=== PATIENT | male | born 1960 | race Caucasian/White ===

== ENCOUNTER 2023-09-10 17:47 | Inpatient (IN) | payer OTHER, SELFPAY ==
[2023-09-10 11:41] VITALS: BP 160/112
[2023-09-10 12:31] LABS: % Basophils 0.6 % (0-2); % Eosinophils 6.1 % (0-6); % Immature Granulocytes 0.5 % (0-0.5); % Lymphocytes 26.6 % (20.5-51.1); % Monocytes 10.1 % (1.7-9.3); % Neutrophils 56.1 % (42.2-75.2); Absolute Eosinophils 0.4 10^3/uL (0-0.7); Absolute Lymphocytes 1.7 10^3/uL (1.2-3.4); Absolute Monocytes 0.7 10^3/uL (0.1-0.6); Absolute Neutrophils 3.6 10^3/uL (1.4-6.5); Hematocrit 48.7 % (39.0-52.0); Hemoglobin 16.7 g/dL (13.0-18.0); Mean Corp Hgb Conc. 34.3 g/dL (33.0-37.0); Mean Corpuscular Hgb 32.6 pg (27.0-31.0); Mean Corpuscular Volume 95.1 fL (80.0-94.0); Nucleated Red Blood Cells % 0 % (-); Platelet Count 219 10^3/uL (130-400); Red Blood Cell Count 5.12 10^6/uL (4.70-6.10); Red Cell Dist. Width 13.3 % (11.5-14.5); White Blood Cell Count 6.4 10^3/uL (4.8-10.8)
[2023-09-10 12:49] LABS: ALT (SGPT) 53 U/L (0-50); AST (SGOT) 53 U/L (17-59); Acetaminophen < 10 ug/ml (10-30); Albumin 4.4 g/dl (3.5-5.0); Alkaline Phosphatase 73 U/L (38-126); Blood Urea Nitrogen 21 mg/dl (9-20); Calcium 9.4 mg/dl (8.4-10.2); Carbon Dioxide 24 mmol/L (22-30); Chloride 105 mmol/L (98-107); Glucose 107 mg/dl (70-99); Potassium 4.7 mmol/L (3.5-5.1); Salicylate < 1.0 mg/dl (2.0-20.0); Sodium 133 mmol/L (135-145); Total Bilirubin 1.2 mg/dl (0.2-1.3); Total Protein 7.4 g/dl (6.3-8.2); eGFR > 60.00
[2023-09-10 12:57] LABS: Alcohol None Detected
[2023-09-10 13:08] LABS: Urine Albumin Negative (Neg - Trace); Urine Bilirubin Negative (Negative); Urine Character Slightly Cloudy (Clear); Urine Color Yellow; Urine Glucose Negative (Negative); Urine Ketone Negative (Negative); Urine Leukocyte 2+ (Negative); Urine Nitrite Positive (Negative); Urine Occult Blood Trace (Negative); Urine Urobilinogen Negative (Neg - 1+)
[2023-09-10 13:17] LABS: TSH Reflex To Free T4 2.22 uIU/ml (0.47-4.68)
[2023-09-10 13:20] LABS: Amphetamines Negative (Negative); Barbiturates Negative (Negative); Benzodiazepines Negative (Negative); Buprenorphine Negative (Negative); Cocaine Negative (Negative); Marijuana Negative (Negative); Methadone Negative (Negative); Methamphetamines Negative (Negative); Opiates Negative (Negative); Phencyclidine Negative (Negative); Tricyclic Antidepressants Negative (Negative)
[2023-09-10 13:24] LABS: Urine White Cell 30-40 /HPF (0-5)
[2023-09-10 13:25] LABS: Urine Bacteria Moderate (Negative)
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
--- NOTE | 2023-09-10 14:20 | PHANOTE ---
med rec note- patient stated he took blood pressure medications about a week, no pharmacy data no ecw
[2023-09-10] MEDS: ROCEPHIN 1000 MG IV (15:14)
[2023-09-10] MEDS: THIAMINE INJECTION 200 MG IV (15:14)
[2023-09-10] MEDS: FOLVITE 50.2000000000000028 MG IV (15:34)
[2023-09-10 15:49] LABS: Folate 7.7 ng/ml (2.76-20); Vitamin B12 344 pg/ml (239-931)
--- NOTE | 2023-09-10 16:25 | CON.MD ---
Consultation - Medical
-
Pt seen & evaluated - psychiatry consulted due to concerns of manic behavior. Pt presents with 2 friends who brought him to the ER. Pt was with one of these friends in [place] for a religion trip which they regularly go on. According to his friend
the patient was behaving bizarrely - was not sleeping for days, going out all hours of the night, bringing home people and having sexual interactions with them. On further exploration, it seems that this kind of behavior first presented about 2
years ago, around the time of his having a stroke. The stroke was found incidentally and he does not recollect any stroke-like symptoms prior to this, believes it was in his frontal lobe. According to his friends, shortly prior to this stroke being
found, he started to behave oddly and behavior became increasingly more bizarre, however eventually it resolved and although he was never back to baseline he was back to '90%'. A few months ago it seems like he started to behave oddly again, with a
significant worsening once he went to [place]. Both he and his friends deny such history prior to 2 yrs ago.
Of note, his friends do say he was always 'odd' but this seems to be a general charecterization of him, and I suspect this may be due to some suppressed feelings on his part as he is part of a very religion group.
Following this stroke, he is reported to have become depressed for some time and prescribed an antidepressant - he eventually stopped taking this as he got better (is not sure of name of medication).
There does not seem to be a history of elaine previously, nor of psychosis or significant depression (prior to 2 years ago). No other significant psychiatric history.
He reports drinking 2 glasses of wine nightly but denies drinking more than this and his friends corroborate this.
On exam, he is quite pleasant and calm - he denies much of his friends reports, however he does have some loose thoughts and is religiously preoccupied and grandiose.
He reports a recent UTI which he does not think was tx adequately and UA corroborates this, however these symptoms have been presenting much longer than the UTI.
Unspecified psychosis, r/o bipolar disorder r/o elaine due to physiologic cause
MSE: male, dressed appropriately, good eye contact, speech nl rate & rhythm, cooperative. Good eye contact. Mood is good , affect constricted but appropriate. Thought process overall linear but with some loose thoughts. No SI/HI/AVH, +grandiosity,
religion preoccupation. Fully oriented. Insight/judgement poor.
Unclear what the cause of his symptoms is - it is unlikely for a bipolar disorder to first present for a male in his late 50s. He describes the stroke as minor & an incidental finding, however it's in the frontal lobe so I cannot say with full
certainty this isn't associated with his presentation though this too is unlikely. He has an MRI scheduled & neuro is following, will review their thoughts and findings.
Zyprexa 2.5mg HS - regardless of cause, would need to treat symptoms acutely so as to hopefully bring him closer to baseline. Will then attempt to get more history and clarify further.
[2023-09-10] MEDS: THIAMINE INJECTION 255 MG IV (16:41)
--- NOTE | 2023-09-10 17:35 | HPS.HSE ---
Family Physician
-
Family Physician: * NONE
Chief Complaint
-
Bizarre, disinhibited behavior as reported by patient's friends
History of Present Illness
63-year-old male with a past medical history of previous ischemic stroke associated with COVID around March 2020 or 2020, history of disinhibited behavior following his COVID infection, depression, UTIs, as well as hypertension presented with
bizarre behavior, which he has been having for some time now. Per reports, he has been having disorganized behavior, insomnia, very yazidism recently and a lot of unusual shopping.
Medical History
Past Medical History
Past Medical History: Reports Other (As per HPI above)
Past Surgical History: Reports Other (Colonoscopy)
Social History
Tobacco: Other (Occasional Cigar Smoking)
Alcohol: Daily
Drug: None
Family History
Family History: Other ([place]. Dementia.)
Allergies / Home Medications
Allergies reflects when Allergies were last updated in [employer].
Home Medications with original date entered in [employer]
Allergy/Medication List:
Allergies
Allergy/AdvReac Type Severity Reaction Status Date / Time
No Known Allergies Allergy Unverified 09/10/23 11:45
Home Medications
aspirin 81 mg tablet,delayed release 81 mg PO DAILY Blood Clot Prevention/Tx 09/10/23
Review of Systems
-
A 12 point ROS was completed and negative except as noted: Yes
Physical Exam
Vital Signs
Vital Signs
Temp Pulse Resp BP Pulse Ox
98.1 F 89 16 160/112 99
09/10/23 11:41 09/10/23 11:41 09/10/23 11:41 09/10/23 11:41 09/10/23 11:41
Physical Exam
General: No Apparent Distress
HEENT: NormoCephalic
Respiratory: Clear
Cardiac: S1/S2 and Regular Rhythm
GI: Soft, Non Tender and Normal Bowel Sounds
Musculoskeletal: No Cyanosis and No Edema
Neuro: Awake, Alert, AO x 3, No Motor Deficits, Nonfocal/grossly intact and Cranial Nerves Intact
Psych: Calm and Intact Judgment/Insight
Laboratory Results
-
09/10/23 12:22
09/10/23 12:22
Laboratory Results
Total Bilirubin 1.2 mg/dl (0.2-1.3) 09/10/23 12:22
AST 53 U/L (17-59) 09/10/23 12:22
ALT 53 U/L (0-50) H 09/10/23 12:22
Alkaline Phosphatase 73 U/L (38-126) 09/10/23 12:22
Impression/Plan
-
Assessment/Plan
Bizarre, Disinhibited Behavior
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
History of disinhibited behavior following his COVID infection,
-Neurology and psychiatry consulted, recommendations appreciated
-Continue aspirin 81 mg daily
-Continue high dose IV Thiamine 500 mg q8hr for 3 doses
-Check labs as per neurology: Vitamin B1, B12, Ammonia, urine drug screen, RPR, heavy metals, copper, HIV
-MRI of the brain with and without contrast
-Lumbar puncture: check CSF-VDRL, cell count, protein, culture and gram stain, PCR meningitis panel
-Psychiatry consultation recommendations appreciated: continue Zyprexa
Concern for UTI
History of UTIs
-Patient asymptomatic and denied dysuria, suprapubic pain or tenderness, and denied any urinary frequency
-Therefore hold off on further antibiotics
-Follow urine culture
History of depression
History of Hypertension -- monitor vital signs
DVT Prophylaxis: Lovenox
[2023-09-10 18:40] LABS: Total Cholesterol 226 mg/dl (50-199); Triglyceride 82 mg/dl (10-149); Very Low Density Lipoprotein 16 mg/dl (0-30)
[2023-09-10 18:53] VITALS: BP 149/102; BMI 23.1
[2023-09-10 19:05] LABS: HDL Cholesterol 111 mg/dl; LDL Cholesterol, Calculated 99 mg/dl
[2023-09-10] MEDS: LOVENOX 40 MG SC (19:31)
[2023-09-10] MEDS: ZYPREXA ZYDIS (ORALLY DISINTEGRATING) 2.5 MG PO (22:35)
[2023-09-10 23:03] VITALS: BP 145/101
[2023-09-11] VITALS (8 sets, daily range): BP systolic 87–149; BP diastolic 65–108
[2023-09-11] MEDS: THIAMINE INJECTION 255 MG IV ×4 (00:09→23:54)
[2023-09-11 07:45] LABS: Hematocrit 48.5 % (39.0-52.0); Hemoglobin 16.6 g/dL (13.0-18.0); Mean Corp Hgb Conc. 34.2 g/dL (33.0-37.0); Mean Corpuscular Hgb 32.2 pg (27.0-31.0); Mean Corpuscular Volume 94.2 fL (80.0-94.0); Mean Platelet Volume 9.1 fL (7.4-10.4); Platelet Count 227 10^3/uL (130-400); Red Blood Cell Count 5.15 10^6/uL (4.70-6.10); Red Cell Dist. Width 13.4 % (11.5-14.5); White Blood Cell Count 5.7 10^3/uL (4.8-10.8)
[2023-09-11 07:46] LABS: Ammonia < 9 umol/L (9-30)
[2023-09-11] MEDS: ASPIR LOW (ENTERIC COATED) 81 MG PO (07:59)
[2023-09-11 08:00] LABS: ALT (SGPT) 44 U/L (0-50); AST (SGOT) 33 U/L (17-59); Albumin 4.2 g/dl (3.5-5.0); Alkaline Phosphatase 70 U/L (38-126); Blood Urea Nitrogen 20 mg/dl (9-20); Calcium 9.4 mg/dl (8.4-10.2); Carbon Dioxide 25 mmol/L (22-30); Chloride 106 mmol/L (98-107); Estimated Creatinine Clearance 89 ml/min; Glucose 107 mg/dl (70-99); Magnesium 2.1 mg/dl (1.6-2.3); Potassium 4.5 mmol/L (3.5-5.1); Sodium 134 mmol/L (135-145); Total Bilirubin 1.5 mg/dl (0.2-1.3); Total Protein 6.9 g/dl (6.3-8.2); eGFR > 60.00
--- NOTE | 2023-09-11 08:17 | W.PN.NEURO.1 ---
Addendum entered and electronically signed by Eldon Monae MD 09/11/23 12:36:
I saw and evaluated patient reviewed below [place] again agree the findings following comments:
63-year-old male with a past ministry of ischemic stroke associated with COVID presented hospital send unusual motor behaviors, some lack of insight and some disinhibition with some evidence by history of some hypomanic type behavior. No acute
events overnight patient feeling fine.
Neurologic examination showing no overt psychosis or hallucinations, poor insight, no pressured speech or flight of ideas. No aphasia, normal cranial nerves motor function reflexes coordination.
Assessment: History of a previous ischemic stroke in the context of COVID, I am somewhat doubtful that a small frontal ischemic stroke could produce isolated significant neuropsychological problems and I do have suspicion that he had previous
underlying unspecified personality disorder or just simply some bizarre behaviors at baseline due to hyper religiosity. Differential diagnosis for neurologic disease could include neurosyphilis, very unlikely this is either due to urinary tract
infection. Some concern for baseline out personality or mild hypomania. No depressive episodes.
Recommendations
-Continue IV thiamine
-Lumbar puncture
-Brain MRI with and without contrast
-Psychiatry started Risperdal
Original Note:
Documented by User: Shruthi Humphrey NP 09/11/23 11:54
Today's Communication / Plan
-
.
Neuro Assessment/Plan
Assessment
Patient is a 63-year-old male with a past medical history of previous ischemic stroke associated with COVID around March 2020 or 2020 presents to hospital with unusual and bizarre behaviors, disinhibition, concern from friends over behaviors and
psychological health.
-CT Head 09/10/23: Unremarkable CT of the brain. There are mild changes of sinusitis.
I. Underlying psychological disorder possible.
II. Urine culture preliminary result positive for E. Coli
III. Hx frontal lobe ischemic infarct.
IV. Low concern for acute stroke or structural brain abnormality causing behavior changes.
Plan
-Continue aspirin 81 mg daily
-UTI workup per primary team.
-Continue Thiamine 500 mg q8hr for 3 doses total.
-Check Vitamin B1, B12, Ammonia, urine drug screen, RPR, heavy metals, copper, HIV
-Check MRI of the brain with and without contrast
-Check lumbar puncture non urgently which can wait for tomorrow, check for CSF-VDRL, cell count, protein, culture and gram stain, PCR meningitis panel
-Psychiatry following.
-Will follow pending results.
Subjective/Objective
Subjective Data
Date of Service: September 11, 2023
No acute events overnight. Patient reports feeling at his baseline, he denies any hallucinations, headache, dizziness, speech/swallow difficulty, numbness, weakness, chest pain, palpitations, and shortness of breath.
Objective Data
Vital Signs
Temp Pulse Resp BP Pulse Ox
97.8 F 82 16 145/98 97
09/11/23 07:00 09/11/23 07:00 09/11/23 07:00 09/11/23 07:00 09/11/23 07:00
Lab Results
09/11/23 07:19
09/11/23 07:19
Sodium 134 mmol/L (135-145) L 09/11/23 07:19
Potassium 4.5 mmol/L (3.5-5.1) 09/11/23 07:19
BUN 20 mg/dl (9-20) 09/11/23 07:19
Glucose 107 mg/dl (70-99) H 09/11/23 07:19
Calcium 9.4 mg/dl (8.4-10.2) 09/11/23 07:19
LDL Cholesterol, Calc 99 mg/dl 09/10/23 12:22
Vitamin B12 344 pg/ml (239-931) 09/10/23 12:22
Ur Buprenorphine Cancelled 09/10/23 15:52
Patient Allergies
No Known Allergies Allergy (Unverified 04/24/24 11:45)
Review of Systems
-
History Source: Patient
EENT: Negative Blurry Vision, Decreased Vision or Swallowing Difficulty
Respiratory: Negative Cough or Trouble Breathing
Cardiac: Negative Chest Pain or Palpitations
Abdomen/GI: Negative Nausea
Genitourinary: Negative Dysuria
Neuro: Negative Dizzy, Headache, Weakness, Numbness, Ataxia or Speech Problem
Physical Exam
-
General: Well Developed, Well Nourished and No Apparent Distress
Eyes: No Ptosis and PERRLA
HEENT: Normocephalic and Atraumatic
Neck: Full Range of Motion
Respiratory: No Dyspnea
GI: Non-distended
Extremities: No Clubbing, No Cyanosis and No Edema
Psych: Unremarkable
Extended Neurological Exam
Mood & Affect: Mood Unremarkable and Affect Unremarkable
Attention Span & Concentration: Awake, Alert, Interactive and No Difficulty with 2 Step Request
Memory: Unremarkable (AAOx3) and Able to Recall
Tremor: Hand Tremor Absent and Head Tremor Absent
Involuntary Movement: None
Speech: Quality Unremarkable, Quantity Unremarkable and Rate of Production Unremarkable
Cranial Nerve II: Left Eye: Pupillary Reactivity Unremarkable, Pupillary Size Unremarkable and Visual Izaguirre Intact
Cranial Nerve II: Right Eye: Pupillary Reactivity Unremarkable, Pupillary Size Unremarkable and Visual Izaguirre Intact
Cranial Nerves III, IV, : Extraocular Movement: Extraocular Movement Full in all Directions
Cranial Nerve VII: Facial Symmetry: Normal Facial Symmetry
Cranial Nerve VIII: Hearing: Unremarkable Hearing to Normal Conversational Volume
Cranial Nerves IX, X: Palate Movement: Palate Elevation Symmetric
Cranial Nerve XI: Shoulder Shrug: Unremarkable
Cranial Nerve XII: Tongue Protusion: Midline
Muscle Strength, Overall: Full Throughout
Muscle Bulk & Tone: Bulk Unremarkable and Tone Unremarkable
Pronator Drift: No Drift in Upper Extremities and No Drift in Lower Extremities
Touch Sensation: Double Simultaneous Stimulation Unremarkable
Coordination: [id number] Testing Unremarkable
Gait & Station: Up from Seated Without Problem
Data Reviewed
-
CT Head: Report Reviewed and Image Reviewed
MRI Head: Pending
Medical Test Reports: Pending (Lumbar puncture)
Lipid Profile: Report Reviewed
HgbA1C: Report Reviewed
P2Y12: Report Reviewed
Reviewed with: Physician and Patient
Medications
-
Active Medications
Generic Name Dose Route Start Last Admin
Trade Name Freq PRN Reason Stop Dose Admin
Aspirin 81 mg 09/11/23 08:00 09/11/23 07:59
Aspirin 81 Mg (Enteric Coated) Tablet PO 10/09/23 07:59 81 mg
DAILY LORI Administration
Bisacodyl 10 mg 09/10/23 18:39
Bisacodyl 10 Mg Rectal Suppository RECTAL 10/08/23 18:38
[id number] PRN
constipation
Enoxaparin Sodium 40 mg 09/10/23 18:39 09/10/23 19:31
Enoxaparin Sodium 40 Mg/0.4 Ml Syringe SC 10/08/23 18:38 40 mg
QPM LORI Administration
Thiamine HCl 500 mg/ Sodium 255 mls @ 255 mls/hr 09/10/23 16:00 09/11/23 07:59
Chloride IV 09/13/23 15:59 255 mls
Q8 LORI Administration
Olanzapine 2.5 mg 09/10/23 22:00 09/10/23 22:35
Olanzapine (Orally-Disintegrating) 5 Mg Tablet PO 10/08/23 21:59 2.5 mg
HS LORI Administration
Polyethylene Glycol 17 grams 09/10/23 18:39
Polyethylene Glycol Powder 17 Grams Packet PO 10/08/23 18:38
DAILYPRN PRN
constipation
Senna/Docusate Sodium 1 tablet 09/10/23 18:39
Docusate W/Senna ([place]-Colace) Tablet PO 10/08/23 18:38
BIDPRN PRN
constipation
Sodium Chloride 0 flush 09/10/23 19:00
Sodium Chloride 0.9% (Flush) Syringe IV 10/08/23 18:59
PER PROTOCOL LORI
Home Medications
�Medication �Instructions �Recorded
aspirin 81 mg tablet,delayed 81 mg PO DAILY Blood Clot 09/10/23
release Prevention/Tx
NIH Stroke Score
Subsequent NIH Scale
Time of Subsequent NIH Scale: 08:15
NIH Stroke Score
Level of Consciousness: 0 - Alert
LOC Questions: 0-Answers both correctly
LOC Commands: 0-Performs both correctly
Best Horizontal Gaze: 0-Normal
Visual Izaguirre: 0=Normal, no visual loss
Facial Palsy: 0=Normal, symmetrical
Motor - Right Arm: 0=No drift 10 seconds
Motor - Left Arm: 0=No drift 10 seconds
Motor - Right Le-No drift 5 seconds
Motor - Left Le-No drift 5 seconds
Limb Ataxia: 0-Absent
Sensation: 0-Normal
Best Language: 0-No aphasia
Dysarthria: 0-Normal
Extinction and Inattention: 0-No abnormality
Total Score:: 0

Documented by User: Eldon Monae MD 09/11/23 12:32
NIH Stroke Score
NIH Stroke Score
Total Score:: 0
[2023-09-11 08:48] LABS: Vitamin B12 315 pg/ml (239-931)
[2023-09-11 08:50] LABS: HIV Combo Negative (Negative)
[2023-09-11 09:23] LABS: Glycohemoglobin (HgbA1c) 5.4 % (4.0-5.6)
[2023-09-11 10:01] LABS: INR 0.91; PT 12.3 Sec (11.4-14.6)
[2023-09-11 12:39] LABS: CSF Clarity Clear; CSF Color Colorless; CSF Tube # 1; Red Cell Count/CSF 371 mm^3; White Cell Count/CSF 0 mm^3 (0-5)
[2023-09-11 12:47] LABS: Spinal Fluid Glucose 62 mg/dl (40-70); Spinal Fluid Protein 47 mg/dl (12-60)
--- NOTE | 2023-09-11 13:42 | PTCARENOTE ---
Patient maintain and tolerated flat for 2 hrs post LP as ordered. No s/s of distress noted. Plan of care ongoing.
--- NOTE | 2023-09-11 14:42 | W.PN.HOSP.TC ---
Today's Communication/Plan
-
Patient stable
Lumbar puncture pending
Assessment / Plan
Assessment / Plan
Physical Exam
General: No Apparent Distress
HEENT: Normocephalic
Respiratory: Clear
Cardiac: S1/S2 and Regular Rhythm
GI: Soft, Non Tender and Normal Bowel Sounds
Musculoskeletal: No Cyanosis and No Edema
Neuro: Awake, Alert, AO x 3, No Motor Deficits, Nonfocal/grossly intact and Cranial Nerves Intact
Psych: Calm and Intact Judgment/Insight
Assessment/Plan
Bizarre, Disinhibited Behavior
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
History of disinhibited behavior following his COVID infection,
-Neurology and psychiatry consulted, recommendations appreciated
-Continue aspirin 81 mg daily
-Continue high dose IV Thiamine 500 mg q8hr for 3 doses
-Check labs as per neurology: Vitamin B1, RPR, heavy metals, copper
-Vitamin B12 is 315
-Ammonia low
-Urine Drug screen negative
-MRI of the brain with and without contrast
-HIV negative
-Lumbar puncture: check CSF-VDRL, cell count, protein, culture and gram stain, PCR meningitis panel
-Psychiatry consultation recommendations appreciated: continue Zyprexa
Concern for UTI
History of UTIs
-Patient asymptomatic and denied dysuria, suprapubic pain or tenderness, and denied any urinary frequency
-Therefore hold off on further antibiotics
-Follow urine culture
History of depression
History of Hypertension -- monitor vital signs
DVT Prophylaxis: Lovenox
Anticipated Discharge: > 48 hours
Subjective/Interval History
-
Date of Service: September 11, 2023
Patient was seen and examined. He denied any new symptoms or complaints.
Objective Data
-
Labs:
Laboratory Results
04/25/24 04/25/24
07:19 09:24
WBC 5.7
Hgb 16.6
Hct 48.5
Plt Count 227
PT 12.3
INR 0.91
Sodium 134 L
Potassium 4.5
Chloride 106
Carbon Dioxide 25
BUN 20
Creatinine 1.0
Glucose 107 H
Calcium 9.4
Total Bilirubin 1.5 H
AST 33
ALT 44
Alkaline Phosphatase 70
Vital Signs:
Vital Signs
Temp Pulse Resp BP Pulse Ox
98.3 F 76 18 147/104 97
09/11/23 12:30 09/11/23 12:30 09/11/23 12:30 09/11/23 12:30 09/11/23 12:30
I&O
09/10/23 09/11/23 09/12/23
06:59 06:59 06:59
Intake Total 720 / 720
Balance 720 / 720
--- NOTE | 2023-09-11 15:05 | PTCARENOTE ---
Patient with bp of 149/91, hr:91 noted at this time. Am bp 145/98, hr: 82.. no s/s of distress noted, Md aware. plan of care ongoing.
--- NOTE | 2023-09-11 16:01 | CM ---
Reviewed the chart notes and spoke with the patient at the bedside. The patient resides with a friend in a one story home with no steps to enter. The patient reports no DME/VN/SNF in the past. The patient confirmed his pharmacy of choice is the
[facility] which is not listed in our system. The patient anticipates being discharged to home with no needs. Per patient, a friend will provide transportation home. CM continues to be available to patient/family and is
monitoring medical plan for needs at discharge.
Plan: Discharge to home when medically stable.
--- NOTE | 2023-09-11 16:39 | W.PN.UPDATE ---
Update Note
Progress Note Update
Pt seen & evaluated at bedside - is calm and cooperative throughout interview. He does continue to report a belief that an archangel spoke to him some weeks ago, which he ties to a taoism re-awakening however when discussed in detail his seems to
be in line with his baseline level of religiosity for the past 30 yrs. He does not believe that this means anything special but rather is a message from God about keeping with his taoism work (again, this is baseline for 30 yrs as he has been
part of a highly taoism group since moving here from [place] 30 yrs ago). No other delusions reported, no AVH reported, is linear & logical.
On exploration, and following further report from his friends yesterday, it seems that there is a strong disagreement from his friends about certain parts of his lifestyle which he seems to be working on accepting the past few years. I suspect that
as he accepts certain aspects of himself more and more, his friends are becoming more concerned and attributing this to a psychotic cause. He reports sleeping 8-9 hours outside of a anny or 2, however his sleep schedule is 8/9pm to 3am but this has
always been the case as it is part of his taoism practice and he enjoys starting the day early. He has also been living with one of these friends for 30 yrs and describes him as 'controlling' - it seems that as he has been establishing boundaries
regarding making his own choices, this too has led to more discord.
While certainly I cannot rule out a manic or psychotic episode, I cannot with certainy diagnose one either - he did present as more activated yesterday and perhaps the 2.5mg of zyprexa yesterday is what has decreased symptoms. He was also under
stress due to his friends bringing him here and arguing with him about their concerns, and his having some time to decompress and process may be what has helped. Regardless, as he is not presenting with active psychosis, not reporting dangerous
thoughts or behaviors and is reasonable and logical throughout the interview, there is no acute need for psychiatric treatment at this time.
D/C zyprexa as pt is clear on the belief that there is no psychotic process and does not want or need tx at this time, he is aware of tx options if this changes or symptoms do occur
No acute psychiatric concerns at this time
[2023-09-11] MEDS: LOVENOX SC (17:32)
[2023-09-12 03:13] VITALS: BP 134/90
[2023-09-12 06:46] LABS: Hematocrit 50.1 % (39.0-52.0); Hemoglobin 16.9 g/dL (13.0-18.0); Mean Corp Hgb Conc. 33.7 g/dL (33.0-37.0); Mean Corpuscular Hgb 32.3 pg (27.0-31.0); Mean Corpuscular Volume 95.8 fL (80.0-94.0); Mean Platelet Volume 9.1 fL (7.4-10.4); Platelet Count 234 10^3/uL (130-400); Red Blood Cell Count 5.23 10^6/uL (4.70-6.10); Red Cell Dist. Width 13.3 % (11.5-14.5); White Blood Cell Count 7.9 10^3/uL (4.8-10.8)
[2023-09-12 07:00] VITALS: BP 143/95
[2023-09-12 07:19] LABS: ALT (SGPT) 42 U/L (0-50); AST (SGOT) 41 U/L (17-59); Albumin 4.4 g/dl (3.5-5.0); Alkaline Phosphatase 68 U/L (38-126); Blood Urea Nitrogen 20 mg/dl (9-20); Carbon Dioxide 27 mmol/L (22-30); Chloride 104 mmol/L (98-107); Estimated Creatinine Clearance 81 ml/min; Glucose 104 mg/dl (70-99); Potassium 5.1 mmol/L (3.5-5.1); Sodium 135 mmol/L (135-145); Total Bilirubin 1.2 mg/dl (0.2-1.3); Total Protein 7.4 g/dl (6.3-8.2); eGFR > 60.00
--- NOTE | 2023-09-12 07:22 | PTCARENOTE ---
Patient found smoking a cigar in the shower at 2200. Felt Coverer confiscated. Patient educated on risk of smoking as well as risk of fire within room and building. prototype deicer assembler placed in patient drawer at this time. Morning shift nurse made aware of
incident.
--- NOTE | 2023-09-12 07:40 | W.PN.NEURO.1 ---
Today's Communication / Plan
-
-Continue aspirin 81 mg daily
-Reassured patient no serious neurologic issues appear to be present
No barriers to discharge we will sign off
Neuro Assessment/Plan
Assessment
Patient is a 63-year-old male with a past medical history of previous ischemic stroke associated with COVID around March 2020 or 2020 presents to hospital with unusual and bizarre behaviors, disinhibition, concern from friends over behaviors and
psychological health.
MRI brain with an old area of hyperintensity on left frontal lobe most likely an old infarct patient had described a stroke that had happened in context of COVID previously in the frontal lobe. I very much doubt that such a small infarct would have
lead to profound neuropsychiatric problems
LP normal
MRI brain with no acute pathology:
Overall assessment: Patient unlikely to have any significant neurologic issue present. Not very strong evidence for any strong psychiatric issue either. I think that patient has a baseline high level of religiosity and has had some high risk
behaviors lately with mild amount of drug use, and has some social issues with disagreements with friends on his lifestyle. By history there seemed some suggestion of a mild hypomania but patient not manic on examination.
Subjective/Objective
Subjective Data
Date of Service: September 12, 2023
No acute events, feeling well this morning, discussed testing all looks reassuring
Objective Data
Vital Signs
Temp Pulse Resp BP Pulse Ox
97.8 F 81 16 143/95 98
09/12/23 07:00 09/12/23 07:00 09/12/23 07:00 09/12/23 07:00 09/12/23 07:00
Lab Results
09/12/23 06:09
09/12/23 06:09
PT 12.3 Sec (11.4-14.6) 09/11/23 09:24
INR 0.91 09/11/23 09:24
Sodium 135 mmol/L (135-145) 09/12/23 06:09
Potassium 5.1 mmol/L (3.5-5.1) 09/12/23 06:09
BUN 20 mg/dl (9-20) 09/12/23 06:09
Glucose 104 mg/dl (70-99) H 09/12/23 06:09
Calcium 10.0 mg/dl (8.4-10.2) 09/12/23 06:09
LDL Cholesterol, Calc 99 mg/dl 09/10/23 12:22
Vitamin B12 315 pg/ml (239-931) 09/11/23 07:19
Ur Buprenorphine Cancelled 09/10/23 15:52
Patient Allergies
No Known Allergies Allergy (Unverified 09/10/23 11:45)
Review of Systems
-
History Source: Patient
All other systems: Reviewed and negative
Constitutional: No Symptoms
EENT: No Symptoms Reported
Respiratory: No Symptoms
Cardiac: No Symptoms
Abdomen/GI: No Symptoms
Genitourinary: No Symptoms
Musculoskeletal: No Symptoms
Skin: No Symptoms
Neuro: See existing Neuro Note
Endocrine: No Symptoms
Hematologic / Lymphatic: No Symptoms
Allergy / Immunology: No Symptoms
Physical Exam
-
General: Comfortable
Eyes: No Ptosis
HEENT: Normocephalic
Neck: No Bruits Bilaterally
Respiratory: Clear to Auscultation
Cardiac: Regular Rhythm
GI: Normal Bowel Sounds
Skin: Unremarkable
Extremities: No Clubbing
Psych: Unremarkable
Extended Neurological Exam
Mood & Affect: Mood Unremarkable
Attention Span & Concentration: Other (Good judgement, fair insight, normal thought process, no hallucinations or delusions, no aphasia, good fund of knowledge)
Memory: Unremarkable
Tremor: Hand Tremor Absent
Involuntary Movement: None
Speech: Quality Unremarkable and Quantity Unremarkable; Negative Receptive Aphasia
Cranial Nerve II: Left Eye: Pupillary Reactivity Unremarkable, Pupillary Size Unremarkable and Visual Izaguirre Intact
Cranial Nerve II: Right Eye: Pupillary Reactivity Unremarkable, Pupillary Size Unremarkable and Visual Izaguirre Intact
Cranial Nerves III, IV, : Extraocular Movement: Extraocular Movement Full in all Directions
Cranial Nerve VII: Facial Symmetry: Normal Facial Symmetry
Muscle Strength, Overall: Full Throughout
Muscle Bulk & Tone: Bulk Unremarkable
Pronator Drift: No Drift in Upper Extremities
Deep Tendon Reflexes: Trace Throughout
Touch Sensation: Unremarkable
Coordination: [id number] Testing Unremarkable
Data Reviewed
-
CT Head: Report Reviewed and Image Reviewed
MRI Head: Report Reviewed and Image Reviewed
Labs: Report Reviewed
[2023-09-12] MEDS: THIAMINE INJECTION 255 MG IV (08:32)
[2023-09-12] MEDS: ASPIR LOW (ENTERIC COATED) 81 MG PO (08:37)
[2023-09-12 11:00] VITALS: BP 144/99
--- NOTE | 2023-09-12 12:13 | PN.CDI ---
CDI
- -
CDI:
Physician Documentation Request
Admit Date: 09/10/23 17:47
Dear Doctor Eagle,
Patient admitted for evaluation of 'Bizarre, Disinhibited Behavior'
ED record states 'His urinalysis is positive for infection�he says he has been having some urinary symptoms recently and was recently treated for a urinary tract infection with antibiotics; will give Rocephin here'
H&P states 'Patient asymptomatic and denied dysuria, suprapubic pain or tenderness, and denied any urinary frequency'
Urine culture positive for e coli
Laboratory Tests
09/10/23
12:41
Urine Color Yellow
Urine Clarity Slightly cloudy
Ur Occult Blood Reflex Trace A
Urine Nitrite (Reflex) Positive A
Leukocyte Esterase Rfl 2+ A
Urine WBC (Reflex) 30-40 A
Urine Bacteria (Reflex) Moderate A
Based on the above, could you please provide a diagnosis that supports the above lab abnormalities and additional evaluation/ monitoring and/or treatment rendered:
Asymptomatic bacteruria
UTI
Other
Use of terms such as suspected, likely, concern for, or probable (associated with a specific diagnosis that is being evaluated, monitored, or treated as if it exists) are acceptable and can be coded in the inpatient setting, when documented at the
time of discharge.
Thank you,
Aurora Díaz RN, BSN
CDI Specialist
tiger text
Please use your independent medical judgment in providing your response.
[2023-09-12 12:14] LABS: Syphilis/T. pallidum Ab Reflex Negative (Negative)
--- NOTE | 2023-09-12 12:51 | CM ---
Reviewed the chart notes. The patient is being discharged to home today. The patient's friend will provide transportation home. CM continues to be available to patient/family and is monitoring medical plan for needs at discharge.
Plan: Discharge to home today. No needs identified at this time.
--- NOTE | 2023-09-12 14:28 | W.PN.HOSP.TC ---
Today's Communication/Plan
-
Discharge today
Assessment / Plan
Assessment / Plan
Physical Exam
General: No Apparent Distress
HEENT: Normocephalic
Respiratory: Clear
Cardiac: S1/S2 and Regular Rhythm
GI: Soft, Non Tender and Normal Bowel Sounds
Musculoskeletal: No Cyanosis and No Edema
Neuro: Awake, Alert, AO x 3, No Motor Deficits, Nonfocal/grossly intact and Cranial Nerves Intact
Psych: Calm and Intact Judgment/Insight
Assessment/Plan
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
History of disinhibited behavior following COVID infection
-Neurology and psychiatry consulted, recommendations appreciated
-Continue aspirin 81 mg daily
-Status post high dose IV Thiamine 500 mg q8hr for 3 doses
-Follow-up labs as per neurology: Vitamin B1, RPR, heavy metals, copper
-Vitamin B12 is 315
-Ammonia low
-Urine Drug screen negative
-MRI of the brain with and without contrast showed, as per neurologist, an old area of hyperintensity on left frontal lobe most likely an old infarct patient had described a stroke that had happened in context of COVID previously in the frontal lobe
-- it is doubtful that such a small stroke would have lead to profound neuropsychiatric problems
-HIV negative
-Lumbar puncture: check CSF-VDRL, cell count, protein, culture and gram stain, PCR meningitis panel
-Psychiatry consultation recommendations appreciated: continue Zyprexa
Concern for UTI
History of UTIs
Asymptomatic E. coli bacteruria
-Patient asymptomatic and denied dysuria, suprapubic pain or tenderness, and denied any urinary frequency
-Therefore hold off on further antibiotics
-Follow urine culture
History of depression
History of Hypertension -- monitor vital signs
DVT Prophylaxis: Lovenox
More than 30 minutes spent in discharge including
Final examination of the patient
Summarizing hospital stay
Instructions for continuing care to all relevant caregivers
Preparation of discharge records, prescriptions, and referral forms
Total time spent (in minutes): 37
Anticipated Discharge: Today
Subjective/Interval History
-
Date of Service: September 12, 2023
Objective Data
-
Labs:
Laboratory Results
09/12/23
06:09
WBC 7.9
Hgb 16.9
Hct 50.1
Plt Count 234
Sodium 135
Potassium 5.1
Chloride 104
Carbon Dioxide 27
BUN 20
Creatinine 1.1
Glucose 104 H
Calcium 10.0
Total Bilirubin 1.2
AST 41
ALT 42
Alkaline Phosphatase 68
Vital Signs:
Vital Signs
Temp Pulse Resp BP Pulse Ox
98.7 F 77 14 144/99 99
09/12/23 11:00 09/12/23 11:00 09/12/23 11:00 09/12/23 11:00 09/12/23 11:00
I&O
09/11/23 09/12/23 09/13/23
06:59 06:59 06:59
Intake Total 720 / 720 1959
Balance 720 / 720 1959
[2023-09-12 15:00] VITALS: BP 150/96
--- NOTE | 2023-09-12 15:19 | W.DS.TRANS ---
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
-
Discharge Instructions:
Discharge Diagnosis/Procedures Reported Neuropsychiatric Issues/Behavioral
Disorder
Previous ischemic stroke associated with COVID
around March 2020 or 2020
History of disinhibited behavior following COVID
infection
Concern for UTI
History of UTIs
Asymptomatic E. coli bacteriuria
History of Depression
History of Hypertension
Diet As tolerated
Activity As tolerated
Driving Restrictions Not until seen by your Dr
Instructions:
Stand-Alone Forms:
Changes to Home Medications: Yes
Discharge Medications:
DC Medications w/original date entered in [facility]
aspirin 81 mg tablet,delayed release 81 mg PO DAILY Blood Clot Prevention/Tx 09/10/23
Home Medication Changes
Aspirin
Pending Results: Yes
Additional Pending Results:
Final results of CSF studies from the hospitalization
Total time spent discharging patient (in min): 37
[2023-09-12 17:29] LABS: Copper, Serum 93.7 ug/dL (70.0-140.0)
[2023-09-12 18:34] LABS: Arsenic, Blood <10.0 ug/L (<=12.0); Lead - Venous 3.2 ug/dL (<=4.9); Mercury, Blood <2.5 ug/L (<=10.0)
[2023-09-14 02:56] LABS: C.neoformans Antigen Negative (Negative)
[2023-09-15 03:49] LABS: CSF VDRL (T. pallidum) Non Reactive (Non Reactive)
--- NOTE | 2023-09-15 14:29 | W.DCSUMMARY ---
Discharge Summary
Discharge Data
Date of Admission: 09/10/23
Date of Discharge: 09/12/23
Total time spent discharging patient (in min): 37
-
Pending Results: Yes
Additional Pending Results:
Final results of CSF studies from the hospitalization
Hospital Course
63-year-old male with a past medical history of previous ischemic stroke associated with COVID around March 2020 or 2020, history of disinhibited behavior following his COVID infection, depression, UTIs, as well as hypertension, presented with
bizarre behavior, which he had been having for some time now. Per reports, he had been having disorganized behavior, insomnia, very hinduism recently and a lot of unusual shopping. Psychiatry and Neurology were consulted and patient was given high
dose intravenous thiamine. MRI Brain was done, which showed no acute changes but did show, as per neurology, an old area of hyperintensity on left frontal lobe most likely an old infarct - patient had described a stroke that had happened in context
of COVID previously in the frontal lobe. It was unlikely such a small stroke would cause profound neuropsychiatric problems. Psychiatry mentioned no acute psychiatric concerns at this time, and patient could follow-up closely with outpatient
psychiatry. Lumbar puncture was done and the initial results were unremarkable -- however at the time of discharge, additional studies were pending and would have to be followed-up.
Discharge Plan
-
Patient Disposition: Home (Routine Discharge)
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
History of disinhibited behavior following COVID infection
Concern for UTI
History of UTIs
Asymptomatic E. coli bacteriuria
History of Depression
History of Hypertension
Condition: Fair
Diet: As tolerated
Activity: As tolerated
Driving Restrictions: Not until seen by your Dr
Referrals:
NONE,* [Family Provider] - in less than 1 week
Prescriptions:
Continued
aspirin 81 mg Tablet,Delayed Release (Dr/Ec)
81 mg PO DAILY
Discharge Orders:
Discharge Patient (As Directed); Ordered 09/12/23
Ordered By: Chucho Guillermo
Discharge Date and Time
Discharge Date/Time: 09/12/23 15:30
Print Language: BULGARIAN
[2023-09-15 20:15] LABS: Vitamin B1, Whole Blood 380 nmol/L (70-180)
== END 2023-09-12 15:30 | disposition home or self-care (01) | DRG 951 ==
LOC: 2 NORTH 17:47
PROVIDERS: Radiology Vascular & Interventional Radiology; ADMITTING PHYSICIAN Hospitalist; CONSULT PHYSICIAN Psychiatry & Neurology Psychiatry; CONSULT PHYSICIAN Student in an Organized Health Care Education/Training Program; EMERGENCY PHYSICIAN Emergency Medicine
PROC: 009U3ZX Drainage of Spinal Canal, Percutaneous Approach, Diagnostic (ICD-10-PCS; 2023-09-10)
PROC: B01B1ZZ Fluoroscopy of Spinal Cord using Low Osmolar Contrast (ICD-10-PCS; 2023-09-10)
DX: R46.2 Strange and inexplicable behavior (principal); F91.9 Conduct disorder, unspecified; Z79.82 Long term (current) use of aspirin; Z86.16 Personal history of COVID-19
CPT/HCPCS: 62328; 70450; 70553; 80053; 80061; 80143; 80179; 80306; 81003; 81015; 82077; 82140; 82175; 82525; 82607; 82728; 82746; 82945; 83036; 83655; 83735; 83825; 84157; 84425; 84443; 85025; 85027; 85610; 86592; 86780; 87015; 87070; 87086; 87088; 87186; 87205; 87327; 87389; 87483; 89051; 96361; 96374; 96375; 99284; 99406; A9575